=== PATIENT | female | born 1950 | race Caucasian/White ===

== ENCOUNTER 2019-02-25 12:28 | Outpatient (CLI) | payer MEDICARE, OTHER ==
--- NOTE | 2019-03-02 09:54 | CT ---
CT CORONARY CALCIUM SCORING: Date: 02/25/19 HISTORY: High cholesterol. Family history of high cholesterol as well. FINDINGS: The total calcium score using the AJ-130 method is 0. Left main: 0 RCA: 0 LAD: 0 LCX: 0 PDA: 0 There are calcifications in the wall of the thoracic aorta without aneurysmal dilatation. No pleural or pericardial effusions are seen. Visualized lung glass are clear. There are degenerativ e changes in the spine. IMPRESSION: Total coronary artery calcium score is 0. POS: VIVI
== END 2019-02-25 12:29 | disposition home or self-care (01) ==
LOC: BICCT 12:28
PROVIDERS: ATTEND Internal Medicine
DX: E78.00 Pure hypercholesterolemia, unspecified (principal)
CPT/HCPCS: 75571

== ENCOUNTER 2021-03-26 09:06 | Outpatient (CLI) | payer MEDICARE, OTHER | END 2021-03-26 09:07 | disposition home or self-care (01) | LOC: BICMAMMO 09:06 | PROVIDERS: ATTEND Specialist | DX: Z12.31 Encounter for screening mammogram for malignant neoplasm of breast (principal); Z98.82 Breast implant status | CPT/HCPCS: 77063; 77067 ==

== ENCOUNTER 2022-03-31 14:25 | Outpatient (CLI) | payer MEDICARE, OTHER | END 2022-03-31 14:26 | disposition home or self-care (01) | LOC: BICMAMMO 14:25 | PROVIDERS: ATTEND Obstetrics & Gynecology | DX: Z12.31 Encounter for screening mammogram for malignant neoplasm of breast (principal); Z98.82 Breast implant status | CPT/HCPCS: 77063; 77067 ==

== ENCOUNTER 2024-05-27 10:47 | Outpatient (CLI) | payer MEDICARE | END 2024-05-27 10:48 | disposition home or self-care (01) | LOC: BICMAMMO 10:47 | PROVIDERS: ATTEND Student in an Organized Health Care Education/Training Program | DX: Z12.31 Encounter for screening mammogram for malignant neoplasm of breast (principal); Z98.82 Breast implant status | CPT/HCPCS: 77063; 77067 ==